=== PATIENT | female | born 1945 | race African-American/Black ===

== ENCOUNTER 2023-09-06 07:35 | Emergency (ER) | payer MEDICARE, MEDICAID ==
[~2023-09-06] VITALS: Ht 157.5 cm; Wt 54.5 kg
[~2023-09-06 07:35] MED LIST: ASPI-482 PO; ATOR40TA28 GT; GLYB5TAB8 PO; LANTUS 30 UNIT; ROSI1TAB PO; VALS1TAB7 PO; [UNRECOGNIZED DRUG - OTHER]
[2023-09-06 07:41] VITALS: BP 140/80; PULSE 91; RESP 15; TEMP 98.2
[2023-09-06] MEDS ORDERED: PERTUSS(ACELL),DIPH,TET VAC/PF 0.5 ML SYRINGE IM. ONE (08:00)
[2023-09-06] MEDS ORDERED: IBUPROFEN 400 MG TABLET PO ONE (08:00)
[2023-09-06] MEDS ORDERED: SILVER SULFADIAZINE 1% 25 GM CREAM TP ONE (08:00)
[2023-09-06] MEDS ORDERED: SILV20CR11 TP (08:11)
[2023-09-06] MEDS ORDERED: IBUP-1506 PO (08:11)
== END 2023-09-06 08:32 | disposition home or self-care (01) ==
LOC: EMS 07:36
DX: T22.232A Burn of second degree of left upper arm, initial encounter (principal); E11.9 Type 2 diabetes mellitus without complications; X58.XXXA Exposure to other specified factors, initial encounter
CPT/HCPCS: 16020; 90471; 90715; 99283

== ENCOUNTER 2023-10-03 13:40 | Emergency (ER) | payer MEDICARE, MEDICAID ==
[~2023-10-03] VITALS: Ht 157.5 cm; Wt 59.1 kg
[~2023-10-03 13:40] MED LIST changes: +IBUP-1506 PO; +SILV20CR11 TP
[2023-10-03 13:50] VITALS: TEMP 98.1
[2023-10-03] MEDS ORDERED: METF-81 PO (13:51)
[2023-10-03] MEDS ORDERED: INSU100I24 SQ (13:51)
[2023-10-03] MEDS ORDERED: VALS40TA11 PO (13:51)
[2023-10-03] MEDS ORDERED: DULA0.75 SQ (13:51)
[2023-10-03] MEDS ORDERED: LIDOCAINE 1%/EPI 1:200,000/PF 30 ML VIAL SQ ONE (15:15)
[2023-10-03] MEDS ORDERED: CHOL400T4 PO (15:16)
[2023-10-03] MEDS ORDERED: ATOR40TA71 PO (15:16)
[2023-10-03] MEDS ORDERED: ASPI-1450 PO (15:16)
[2023-10-03] MEDS ORDERED: ACETAMINOPHEN 500 MG TABLET PO ONE (16:00)
[2023-10-03 16:38] VITALS: BP 121/61; PULSE 76; RESP 16
== END 2023-10-03 16:41 | disposition home or self-care (01) ==
LOC: EMS 13:46
DX: S01.01XA Laceration without foreign body of scalp, initial encounter (principal); E11.9 Type 2 diabetes mellitus without complications; W26.8XXA Contact with other sharp object(s), not elsewhere classified, initial encounter; Y93.89 Activity, other specified; Y92.89 Other specified places as the place of occurrence of the external cause; Y99.8 Other external cause status
CPT/HCPCS: 99282; 82962; 12001; J3490

== ENCOUNTER 2023-10-13 10:06 | Emergency (ER) | payer MEDICARE, MEDICAID ==
[~2023-10-13] VITALS: Ht 160 cm; Wt 45.5 kg
[~2023-10-13 10:06] MED LIST changes: +ASPI-1450 PO; -ASPI-482 PO; -ATOR40TA28 GT; +ATOR40TA71 PO; +CHOL400T4 PO; +DULA0.75 SQ; -GLYB5TAB8 PO; -IBUP-1506 PO; +INSU100I24 SQ; -LANTUS 30 UNIT; +METF-81 PO; -ROSI1TAB PO; -SILV20CR11 TP; -VALS1TAB7 PO; +VALS40TA11 PO; -[UNRECOGNIZED DRUG - OTHER]
[2023-10-13 10:26] VITALS: BP 110/62; PULSE 73; RESP 16; TEMP 98.7
== END 2023-10-13 12:34 | disposition home or self-care (01) ==
LOC: EMS 10:06
DX: S01.01XD Laceration without foreign body of scalp, subsequent encounter (principal); E11.9 Type 2 diabetes mellitus without complications; Z48.02 Encounter for removal of sutures; X58.XXXD Exposure to other specified factors, subsequent encounter
CPT/HCPCS: 82962; 99282